=== PATIENT | male | born 1985 ===

== ENCOUNTER 2017-03-25 14:26 | Inpatient (IN) | payer OTHER ==
[2017-03-25] MEDS ORDERED: ACETAMINOPHEN 325 MG TAB PO PRN (18:59)
[2017-03-25] MEDS ORDERED: ONDANSETRON 4 MG/2 ML VIAL IVP PRN (18:59)
[2017-03-25] MEDS ORDERED: BISACODYL 10 MG SUPP PR PRN (18:59)
[2017-03-25] MEDS ORDERED: MAGNESIUM HYDROXIDE 30 ML UDCUP PO PRN (18:59)
[2017-03-25] MEDS ORDERED: LACTULOSE 20 GM/30 ML UDCUP PO PRN (18:59)
[2017-03-25] MEDS ORDERED: oxyCODONE IR 5 MG TAB PO PRN (18:59)
[2017-03-25] MEDS ORDERED: POLYETHYLENE GLYCOL 3350 17 GM PKT PO PRN (18:59)
[2017-03-25] MEDS ORDERED: VANCOMYCIN HCL/NORMAL SALINE 250 ML IV ONE (19:30)
[2017-03-25] MEDS: NICOTINE 21 MG/24 HR PATCH TD SCH (19:57)
[2017-03-25] MEDS: SENNOSIDES/DOCUSATE SODIUM TAB PO SCH (20:13)
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
[2017-03-25] MEDS: ALPRAZolam 1 MG TAB PO SCH (21:23)
--- NOTE | 2017-03-26 04:02 | PDMN ---
Medical Necessity Medical necessity: M70 cellulitis, I/D with ongoing abx needed, M160 sepsis and other febrile illness -resolving
[2017-03-26] MEDS: ALPRAZolam 1 MG TAB PO SCH ×4 (05:15→20:59)
[2017-03-26] MEDS ORDERED: ADDERALL 10 MG TAB PO PRN (06:00)
[2017-03-26] MEDS ORDERED: VANCOMYCIN HCL/NORMAL SALINE 250 ML IV SCH (08:00)
[2017-03-26 08:12] LABS: PLATELET COUNT 207 10^3/uL (150-400)
[2017-03-26] MEDS: NICOTINE 21 MG/24 HR PATCH TD SCH (10:44)
[2017-03-26] MEDS: SENNOSIDES/DOCUSATE SODIUM TAB PO SCH ×2 (11:05→21:04)
--- NOTE | 2017-03-26 11:36 | HOSPPROG ---
Hospitalist Progress Note Assessment/Plan: New patient encounter 32 yo male who was transferred from [facility] due to insurance reasons who had a right hand I&D due to right hand abscess. He was originally admitted with right hand abscess and cellulitis and Sepsis per SIRS criteria. Prior to I&D, he was treated with Unasyn and Vancomycin. He has been continued on Vancomycin alone since admission to [facility] We are awaiting consult by Dr. Mary Jo Lamb with hand surgery. I left a VM with the emergency medical technician/driver today The pt still has leukocytosis but has been afebrile #Right hand cellulitis and abscess -s/p I&D #Sepsis per SIRS criteria (reported from [facility]) #Leukocytosis, improving #Anxiety #tobacco abuse disorder Plan: -Await consultation and appreciate assistance and reccs -Cont Vancomycin, would like to repeat labs tomorrow to ensure resolution of Leukocytosis -Monitor BP closely, borderline low but could be baseline. No tachycardia or Fever noted -Pain mgmt -Keep inpatient -DVT proph: early ambulation, low risk -Dispo: waiting for eval. Likely D/C soon. Would ensure resolution of Leukocytosis. Subjective: feels better. pain is well controlled. no cp or SOB. Objective: Vital Signs Temp Pulse Resp BP Pulse Ox 36.8 C 77 15 109/64 91 L 03/26/17 08:56 03/26/17 08:56 03/26/17 08:56 03/26/17 08:56 03/26/17 08:56 Laboratory Results 03/26/17 08:00 03/26/17 08:00 03/25/17 03/26/17 03/27/17 05:59 05:59 05:59 Intake Total 800 Balance 800 - Physical Exam Constitutional: no apparent distress, not in pain Eyes: PERRL, EOMI Ears, Nose, Mouth, Throat: moist mucous membranes, hearing normal Cardiovascular: regular rate and rhythym, no murmur, rub, or gallop, No edema Respiratory: no respiratory distress, no rales or rhonchi, clear to auscultation Gastrointestinal: normoactive bowel sounds, soft, non-tender abdomen, no palpable masses Genitourinary: no bladder fullness Skin: warm Musculoskeletal: full muscle strength Neurologic: AAOx3 Psychiatric: interacting appropriately, not anxious, not encephalopathic Lymph, Heme, Immunologic: No petechiae ICD10 Worksheet Patient Problems: Problems Problem Status Onset Abscess, hand Acute - ICD10 Problem Qualifiers (1) Abscess, hand
[2017-03-26] MEDS: VANCOMYCIN HCL/NORMAL SALINE 250 ML IV SCH (17:07)
[2017-03-27] MEDS: VANCOMYCIN HCL/NORMAL SALINE 250 ML IV SCH ×3 (00:40→20:42)
[2017-03-27 04:43] LABS: PLATELET COUNT 212 10^3/uL (150-400)
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
[2017-03-27] MEDS: ALPRAZolam 1 MG TAB PO SCH ×4 (04:51→20:46)
[2017-03-27] MEDS: NICOTINE 21 MG/24 HR PATCH TD SCH (08:56)
[2017-03-27] MEDS: SENNOSIDES/DOCUSATE SODIUM TAB PO SCH ×2 (09:02→20:46)
--- NOTE | 2017-03-27 10:39 | HOSPPROG ---
Hospitalist Progress Note Assessment/Plan: 32 yo male who was transferred from [facility] due to insurance reasons who had a right hand I&D due to right hand abscess. He was originally admitted with right hand abscess and cellulitis and Sepsis per SIRS criteria. Prior to I&D, he was treated with Unasyn and Vancomycin. He has been continued on Vancomycin alone since admission to [facility] Consultation by Dr. Tereza Lamb with hand surgery Leukocytosis has cleared Dr. Lamb to eval again today. He would like additional epithelial tissue prior to transitioning to oral abx. Once ready to transition, would consider Doxycycline 100mg PO BID x 10 days unless we have cultures from [facility] that would indicate alternative regimen The plan was d/w the patient in detail #Right hand cellulitis and abscess -s/p I&D #Sepsis per SIRS criteria (reported from [facility]) #Leukocytosis, improving #Anxiety #tobacco abuse disorder Plan: -cont Vancomycin -Keep inpatient -dispo: per ortho. -DVT proph: early ambulation, low risk Subjective: feels better. finger wrapped. No fever. No leukocytosis. Pain is well controlled. Objective: Vital Signs Temp Pulse Resp BP Pulse Ox 36.5 C 74 16 121/76 H 93 03/27/17 07:45 03/27/17 07:45 03/27/17 07:45 03/27/17 07:45 03/27/17 07:45 Laboratory Results 03/27/17 04:15 03/27/17 04:15 03/26/17 03/27/17 03/28/17 05:59 05:59 05:59 Intake Total 800 1572 Balance 800 1572 - Physical Exam Constitutional: no apparent distress Eyes: PERRL Ears, Nose, Mouth, Throat: moist mucous membranes, hearing normal Cardiovascular: regular rate and rhythym, no murmur, rub, or gallop, No edema Respiratory: no respiratory distress, no rales or rhonchi Gastrointestinal: normoactive bowel sounds, soft, non-tender abdomen Skin: warm Musculoskeletal: other (right middle finger with dressing in place) Neurologic: AAOx3 Psychiatric: interacting appropriately, not anxious, not encephalopathic ICD10 Worksheet Patient Problems: Problems Problem Status Onset Abscess, hand Acute - ICD10 Problem Qualifiers (1) Abscess, hand
--- NOTE | 2017-03-27 20:15 | SOAPPROG ---
SOAP Progress Note Assessment/Plan: Assessment: Plan: Subjective: states he'd like to go home soon granulation tissue forming at base of wound erythema decreased on dorsum of digit finger redressed cont abx will check wound again tomorrow and if granulation tissue continues to mature then consider DC consider switching to po antibiotics Objective: Vital Signs Temp Pulse Resp BP Pulse Ox 36.6 C 77 16 107/72 95 03/27/17 15:53 03/27/17 15:53 03/27/17 15:53 03/27/17 15:53 03/27/17 15:53 Laboratory Results 03/27/17 04:15 03/27/17 04:15 03/26/17 03/27/17 03/28/17 05:59 05:59 05:59 Intake Total 800 1572 600 Balance 800 1572 600 ICD10 Worksheet Patient Problems: Problems Problem Status Onset Abscess, hand Acute
[2017-03-28] MEDS: VANCOMYCIN 1 GM in D5W 250 ML IV SCH ×2 (04:55→13:36)
[2017-03-28] MEDS: ALPRAZolam 1 MG TAB PO SCH ×3 (04:55→18:12)
[2017-03-28] MEDS: NICOTINE 21 MG/24 HR PATCH TD SCH (08:24)
[2017-03-28] MEDS: SENNOSIDES/DOCUSATE SODIUM TAB PO SCH (08:30)
--- NOTE | 2017-03-28 13:48 | HOSPPROG ---
Hospitalist Progress Note Assessment/Plan: 32 yo male who was transferred from [facility] due to insurance reasons who had a right hand I&D due to right hand abscess. He was originally admitted with right hand abscess and cellulitis and Sepsis per SIRS criteria. Prior to I&D, he was treated with Unasyn and Vancomycin. He has been continued on Vancomycin alone since admission to [facility] Consultation by Dr. Tereza Lamb with hand surgery Leukocytosis has cleared Dr. Lamb to eval again today. He would like additional epithelial tissue prior to transitioning to oral abx. Once ready to transition, would consider Doxycycline 100mg PO BID x 10 days unless we have cultures from [facility] that would indicate alternative regimen The plan was d/w the patient in detail #Right hand cellulitis and abscess -s/p I&D #Sepsis per SIRS criteria (reported from [facility]) #Leukocytosis, resolved #Anxiety #tobacco abuse disorder Plan: -?Discharge today vs tomorrow pending eval and clearance by Dr. Tereza Lamb -Keep inpatient -dispo: per ortho. -DVT proph: early ambulation, low risk Subjective: Afebrile, able to move right hand. Feels better. Objective: Vital Signs Temp Pulse Resp BP Pulse Ox 36.3 C 76 16 103/65 94 03/28/17 11:45 03/28/17 11:45 03/28/17 11:45 03/28/17 11:45 03/28/17 11:45 Laboratory Results 03/27/17 04:15 03/27/17 04:15 03/27/17 03/28/17 03/29/17 05:59 05:59 05:59 Intake Total 1572 2049 Balance 1572 2049 - Physical Exam Constitutional: no apparent distress Eyes: PERRL, EOMI Ears, Nose, Mouth, Throat: moist mucous membranes, hearing normal Cardiovascular: No edema Respiratory: no respiratory distress Gastrointestinal: No distension Neurologic: AAOx3 Psychiatric: interacting appropriately, not anxious, not encephalopathic, thought process linear ICD10 Worksheet Patient Problems: Problems Problem Status Onset Abscess, hand Acute - ICD10 Problem Qualifiers (1) Abscess, hand
--- NOTE | 2017-03-28 15:28 | ASMTCMCOM ---
CM Note CM Note Notes: Pt will likely DC later this evening with oral ABX. CM available if needs change. Date Signed: 03/28/2017 03:27 PM Electronically Signed By:Saba García LCSW
--- NOTE | 2017-03-28 15:33 | ASMTCMCOM ---
CM Note CM Note Notes: Pt admitted with septic cellulitis. Plan is to transition to oral ABX and DC with no needs. Pt will f.u with outpt urology for bladder mass. C/M avaialble if needs change. Date Signed: 03/28/2017 03:32 PM Electronically Signed By:Saba García LCSW
--- NOTE | 2017-03-28 15:36 | ASMTCMCOM ---
CM Note CM Note Notes: Please ignore prev note. The wrong person was charted on.. Date Signed: 03/28/2017 03:36 PM Electronically Signed By:Saba García LCSW
[2017-03-28 16:15] VITALS: BP 126/82; PULSE 80; RESP 18; TEMP 97.7; O2SAT 95
--- NOTE | 2017-03-28 17:10 | SOAPPROG ---
SOAP Progress Note Assessment/Plan: Assessment: Plan: Subjective: states he doesn't have any pain skin and wound healing nicely change to oral antibiotics may DC to home FU in office on Friday Objective: Vital Signs Temp Pulse Resp BP Pulse Ox 36.5 C 80 18 126/82 H 95 03/28/17 16:14 03/28/17 16:14 03/28/17 16:14 03/28/17 16:14 03/28/17 16:14 Laboratory Results 03/27/17 04:15 03/27/17 04:15 03/27/17 03/28/17 03/29/17 05:59 05:59 05:59 Intake Total 1572 0 Balance 1572 2049 ICD10 Worksheet Patient Problems: Problems Problem Status Onset Abscess, hand Acute
--- NOTE | 2017-03-28 17:56 | PDDCSUM ---
Discharge Summary Discharge Summary: 32 yo male who was transferred from [facility] due to insurance reasons who had a right hand I&D due to right hand abscess. He was originally admitted with right hand abscess and cellulitis and Sepsis per SIRS criteria. Prior to I&D, he was treated with Unasyn and Vancomycin. He has been continued on Vancomycin alone since admission to [facility] Consultation by Dr. Tereza Lamb with hand surgery Leukocytosis has cleared cleared by Dr. Tereza Lamb for discharge He will f/u with Dr. Lamb on Apr 01, 2017 abx changed to doxycycline 100mg po bid, 7 additional days DDX #Right hand cellulitis and abscess -s/p I&D #Sepsis per SIRS criteria (reported from [facility]) #Leukocytosis, resolved #Anxiety #tobacco abuse disorder exam: see progress note from today meds: see med rec total time spent on d/c is 45 minutes
== END 2017-03-28 18:15 | disposition home or self-care (01) | DRG 872 ==
LOC: F1N 18:20
PROVIDERS: ADMIT Family Medicine; ATTEND Family Medicine
DX: A41.9 Sepsis, unspecified organism (principal); L03.113 Cellulitis of right upper limb; L02.511 Cutaneous abscess of right hand; F41.9 Anxiety disorder, unspecified; F90.9 Attention-deficit hyperactivity disorder, unspecified type; Z72.0 Tobacco use
CPT/HCPCS: J3370